=== PATIENT | female | born 1960 | race Caucasian/White ===

== ENCOUNTER 2024-09-22 20:01 | Observation (INO) | payer OTHER ==
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
[2024-09-22 21:16] LABS: Absolute Neutrophil Ct (ANC) 1.92 x10^3/uL (1.56-6.13); BASOPHIL % 2.2 % (0.1-1.2); Basophil (Absolute #) 0.11 x10^3/uL (0.01-0.08); Eosinophil % 6.3 % (0.7-5.8); Eosinophil (Absolute #) 0.32 x10^3/uL (0.04-0.36); Hematocrit 41.6 % (34.1-44.9); Hemoglobin 13.6 g/dL (11.2-15.7); IMMATURE GRAN # 0.01 x10^3u/L (0.001-0.031); IMMATURE GRAN % 0.2 % (0.001-0.429); Lymphocyte (Absolute #) 2.23 x10^3/uL (1.18-3.74); Lymphocytes % 44.2 % (19.3-51.7); Mean Cell Volume 92.7 fL (79.4-94.8); Mean Corpuscular Hemoglobin 30.3 pg (25.6-32.2); Mean Corpuscular Hgb Concent. 32.7 g/dL (32.2-35.5); Mean Platelet Volume 10.4 fL (9.4-12.3); Monocyte (Absolute #) 0.45 x10^3/uL (0.24-0.86); Monocytes % 8.9 % (4.7-12.5); Neutrophil % 38.2 % (34.0-71.1); Platelet Count 303 x10^3/uL (182-369); Red Blood Count 4.49 x10^6/uL (3.93-5.22); Red Cell Distribution Width 14.1 % (11.7-14.4)
[2024-09-22 21:19] LABS: Appearance Clear (Clear); Bacteria None Seen /HPF (None Seen); Bilirubin Negative (Negative); Blood Negative (Negative); Epithelial Cells Rare /HPF (None Seen); Glucose, Urine Negative (Negative); Hyaline Casts NONE SEEN /LPF (0-2); Ketones Negative (Negative); Leukocyte Esterase Negative (Negative); Nitrite Negative (Negative); Ph 6.5 (4.6-8.0); Protein,Urine Dip Trace (Negative); RBC 0-2 /HPF (0-5); Specific Gravity 1.025 (1.005-1.030); WBC 0-2 /HPF (0-5)
[2024-09-22 22:00] LABS: ALBUMIN 4.3 g/dL (3.5-5.0); ANION GAP 15.9 MEQ/L (5-15); Calcium 9.4 mg/dL (8.4-10.2); Creatinine 1 0.69 mg/dL (0.52-1.04); EST GLOMERULAR FILTRATION RATE 98.1 ML/MIN; NT PRO BNPII 95.4 pg/mL (<300); Potassium 3.8 mmol/L (3.5-5.1); TSH, 3RD Generation 0.119 mIU/L (0.470-4.680); Total Protein 7.6 g/dL (6.3-8.2)
[2024-09-22] MEDS ORDERED: BABY ASPIRIN 81 MG CHEW ONE (22:52)
[2024-09-22] MEDS: BABY ASPIRIN 81 MG CHEW PO ONE (22:54)
[2024-09-23] MEDS ORDERED: Zofran 4 MG/2 ML VIAL IV PRN (00:27)
[2024-09-23] MEDS ORDERED: VITAMIN D2 PO PRN (00:30)
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
[2024-09-23] MEDS: Ativan 1 MG PO SCH (02:18)
[2024-09-23] MEDS: TYLENOL 325 MG PO PRN (02:19)
[2024-09-23 05:15] VITALS: O2SAT 95
[2024-09-23 05:43] LABS: Absolute Neutrophil Ct (ANC) 2.12 x10^3/uL (1.56-6.13); BASOPHIL % 1.7 % (0.1-1.2); Basophil (Absolute #) 0.09 x10^3/uL (0.01-0.08); Eosinophil % 7.6 % (0.7-5.8); Eosinophil (Absolute #) 0.41 x10^3/uL (0.04-0.36); Hematocrit 40.7 % (34.1-44.9); Hemoglobin 13.4 g/dL (11.2-15.7); IMMATURE GRAN # 0.01 x10^3u/L (0.001-0.031); IMMATURE GRAN % 0.2 % (0.001-0.429); Lymphocyte (Absolute #) 2.28 x10^3/uL (1.18-3.74); Lymphocytes % 42.5 % (19.3-51.7); Mean Cell Volume 93.6 fL (79.4-94.8); Mean Corpuscular Hemoglobin 30.8 pg (25.6-32.2); Mean Corpuscular Hgb Concent. 32.9 g/dL (32.2-35.5); Monocyte (Absolute #) 0.45 x10^3/uL (0.24-0.86); Monocytes % 8.4 % (4.7-12.5); Neutrophil % 39.6 % (34.0-71.1); Platelet Count 321 x10^3/uL (182-369); Red Blood Count 4.35 x10^6/uL (3.93-5.22); Red Cell Distribution Width 14.3 % (11.7-14.4); White Blood Count 5.4 x10^3/uL (3.98-10.04)
[2024-09-23 06:10] LABS: ANION GAP 13.5 MEQ/L (5-15); Calcium 8.9 mg/dL (8.4-10.2); Creatinine 1 0.64 mg/dL (0.52-1.04); EST GLOMERULAR FILTRATION RATE 99.9 ML/MIN; Potassium 3.7 mmol/L (3.5-5.1)
[2024-09-23] MEDS: SYNTHROID 25 MCG PO SCH (07:17)
[2024-09-23] MEDS ORDERED: MEDICATION INTERVENTION MC SCH (07:30)
--- NOTE | 2024-09-23 08:43 | XRAY ---
Indication: Pain. Comparison: August 11, 2019 Portable chest again hyperinflated and clear. Heart not enlarged. Bony thorax intact again with mild degenerative changes. No new/acute findings.
[2024-09-23] MEDS: Pepcid 20 MG PO SCH (09:13)
[2024-09-23] MEDS: PLAVIX Tablet PO SCH (09:13)
[2024-09-23] MEDS: ECOTRIN 81 MG PO SCH (09:13)
[2024-09-23] MEDS: ENOXAPARIN SODIUM SQ SCH (09:14)
[2024-09-23] MEDS ORDERED: LAMOTRIGINE 25 MG PO SCH (10:00)
--- NOTE | 2024-09-23 11:35 | PCM.DS ---
Discharge Summary Date of Admission: 09/23/24 00:22 Date of Discharge: 09/23/24 Admitting Physician: MOOSE EISENBERG MD Primary Care Provider: PETER SPAULDING Allergies Allergies No Known Drug Allergies Allergy (Verified 09/22/24 20:06) Hospital Summary - Hospital Course Hospital Course: is a 64 year old female with a history of possible stroke/TIA (on ASA/Plavix, with an upcoming appointment with Neurology in December), hypothyroidism (on Synthroid, s/p thyroidectomy)( has an upcoming appointment with endocrinology) and no history of HTN or CAD (last stress test was more than 10 years ago and negative). She presented to the hospital last night for evaluation of intermittent left-sided chest pain that has been progressively worsening si april. Patient has also noticed that her blood pressure has been higher than normal. Patient states that her blood pressures were running in the 160s to 170s systolic. Chest pain tends to radiate down her left arm. Patient denies a cardiovascular history. No trauma no fever. Symptoms are mild to moderate in intensity when they occur. No associated nausea vomiting or diaphoresis. No diarrhea no rash no trauma. Patient reports that she has been a little more tearful lately for no apparent reason. In the ED, the workup was unremarkable other than a depressed TSH. At the time of my evaluation, the patient does not report a history of recent Synthroid dose changes. Today she continues to have the CP but only with palpation and appears to musculoskeletal. [place] have pt f/u OP with cardiology for need for possible cardiac stress test. Pt states today she is not going to change her synthroid dose at home and she does not care what is recommended here. Discussed possible side effects of abnormal thyroid levels. She has an upcoming appointment with endocrinology and will discuss then. She is requesting further testing for hx of possible TIA in April. Explained she is here for CP and I am unable to do this at this time. She currenlty has no stroke like sxs or concerns. Recommended she f/u OP as scheduled with neurology. She denies SOB, abd. pain, N/V/D. - Vitals & Intake/Output Vital Signs: Vital Signs Temperature 97.1 F 09/23/24 07:56 Pulse Rate 73 09/23/24 07:56 Respiratory Rate 17 09/23/24 07:56 Blood Pressure 147/79 09/23/24 07:56 O2 Sat by Pulse Oximetry 95 09/23/24 07:56 Intake & Output: Intake & Output 09/20/24 09/21/24 09/22/24 09/23/24 11:59 11:59 11:59 11:59 Intake Total 60 Balance 60 Weight 67.1 kg - Lab Result Diagrams: 09/23/24 05:34 09/23/24 05:34 Lab Results-Last 24 Hrs: Lab Results-Last 24 Hours 09/22/24 09/22/24 09/22/24 Range/Units 20:55 20:55 20:55 WBC 5.0 (3.98-10.04) x10^3/uL RBC 4.49 (3.93-5.22) x10^6/uL Hgb 13.6 (11.2-15.7) g/dL Hct 41.6 (34.1-44.9) % MCV 92.7 (79.4-94.8) fL MCH 30.3 (25.6-32.2) pg MCHC 32.7 (32.2-35.5) g/dL RDW 14.1 (11.7-14.4) % Plt Count 303 (182-369) x10^3/uL MPV 10.4 (9.4-12.3) fL Gran % 38.2 (34.0-71.1) % Immature Gran % (Auto) 0.2 (0.001-0.429) % Nucleat RBC Rel Count 0.0 (0.00-0.2) % Eos # (Auto) 0.32 (0.04-0.36) x10^3/uL Immature Gran # (Auto) 0.01 (0.001-0.031) x10^3u/L Absolute Lymphs (auto) 2.23 (1.18-3.74) x10^3/uL Absolute Monos (auto) 0.45 (0.24-0.86) x10^3/uL Absolute Nucleated RBC 0.00 (0.00-0.012) x10^3u/L Lymphocytes % 44.2 (19.3-51.7) % Monocytes % 8.9 (4.7-12.5) % Eosinophils % 6.3 H (0.7-5.8) % Basophils % 2.2 H (0.1-1.2) % Absolute Granulocytes 1.92 (1.56-6.13) x10^3/uL Basophils # 0.11 H (0.01-0.08) x10^3/uL Sodium 147 H (135-145) mmol/L Potassium 3.8 (3.5-5.1) mmol/L Chloride 108 H (98-107) mmol/L Carbon Dioxide 27 (22-30) mmol/L Anion Gap 15.9 H (5-15) MEQ/L BUN 15 (7-17) mg/dL Creatinine 0.69 (0.52-1.04) mg/dL Estimated GFR 98.1 ML/MIN Glucose 91 (74-106) mg/dL Calcium 9.4 (8.4-10.2) mg/dL Total Bilirubin 1.00 (0.2-1.3) mg/dL AST 36 (14-36) U/L ALT 22 (0-35) U/L Alkaline Phosphatase 121 (38-126) U/L Troponin I < 0.012 (0.000-0.033) ng/mL NT-Pro-B Natriuret Pep 95.4 (<300) pg/mL Serum Total Protein 7.6 (6.3-8.2) g/dL Albumin 4.3 (3.5-5.0) g/dL TSH 3rd Generation 0.119 L (0.470-4.680) mIU/L Urine Color (Yellow) Urine Appearance (Clear) Urine pH (4.6-8.0) Ur Specific [place] (1.005-1.030) Urine Protein (Negative) Urine Glucose (UA) (Negative) mg/dL Urine Ketones (Negative) Urine Blood (Negative) Urine Nitrite (Negative) Urine Bilirubin (Negative) Urine Urobilinogen (0.2) mg/dL Ur Leukocyte Esterase (Negative) U Hyaline Cast (Auto) (0-2) /LPF Urine Microscopic RBC (0-5) /HPF Urine Microscopic WBC (0-5) /HPF Ur Epithelial Cells (None Seen) /HPF Urine Bacteria (None Seen) /HPF Urine Culture Reflexed (NO) 09/22/24 09/23/24 09/23/24 Range/Units 21:09 01:02 05:34 WBC (3.98-10.04) x10^3/uL RBC (3.93-5.22) x10^6/uL Hgb (11.2-15.7) g/dL Hct (34.1-44.9) % MCV (79.4-94.8) fL MCH (25.6-32.2) pg MCHC (32.2-35.5) g/dL RDW (11.7-14.4) % Plt Count (182-369) x10^3/uL MPV (9.4-12.3) fL Gran % (34.0-71.1) % Immature Gran % (Auto) (0.001-0.429) % Nucleat RBC Rel Count (0.00-0.2) % Eos # (Auto) (0.04-0.36) x10^3/uL Immature Gran # (Auto) (0.001-0.031) x10^3u/L Absolute Lymphs (auto) (1.18-3.74) x10^3/uL Absolute Monos (auto) (0.24-0.86) x10^3/uL Absolute Nucleated RBC (0.00-0.012) x10^3u/L Lymphocytes % (19.3-51.7) % Monocytes % (4.7-12.5) % Eosinophils % (0.7-5.8) % Basophils % (0.1-1.2) % Absolute Granulocytes (1.56-6.13) x10^3/uL Basophils # (0.01-0.08) x10^3/uL Sodium (135-145) mmol/L Potassium (3.5-5.1) mmol/L Chloride (98-107) mmol/L Carbon Dioxide (22-30) mmol/L Anion Gap (5-15) MEQ/L BUN (7-17) mg/dL Creatinine (0.52-1.04) mg/dL Estimated GFR ML/MIN Glucose (74-106) mg/dL Calcium (8.4-10.2) mg/dL Total Bilirubin (0.2-1.3) mg/dL AST (14-36) U/L ALT (0-35) U/L Alkaline Phosphatase (38-126) U/L Troponin I < 0.012 < 0.012 (0.000-0.033) ng/mL NT-Pro-B Natriuret Pep (<300) pg/mL Serum Total Protein (6.3-8.2) g/dL Albumin (3.5-5.0) g/dL TSH 3rd Generation (0.470-4.680) mIU/L Urine Color Dark Yellow A (Yellow) Urine Appearance Clear (Clear) Urine pH 6.5 (4.6-8.0) Ur Specific [place] 1.025 (1.005-1.030) Urine Protein Trace A (Negative) Urine Glucose (UA) Negative (Negative) mg/dL Urine Ketones Negative (Negative) Urine Blood Negative (Negative) Urine Nitrite Negative (Negative) Urine Bilirubin Negative (Negative) Urine Urobilinogen 1.0 A (0.2) mg/dL Ur Leukocyte Esterase Negative (Negative) U Hyaline Cast (Auto) NONE SEEN (0-2) /LPF Urine Microscopic RBC 0-2 (0-5) /HPF Urine Microscopic WBC 0-2 (0-5) /HPF Ur Epithelial Cells Rare (None Seen) /HPF Urine Bacteria None Seen (None Seen) /HPF Urine Culture Reflexed NO (NO) 09/23/24 09/23/24 Range/Units 05:34 05:34 WBC 5.4 (3.98-10.04) x10^3/uL RBC 4.35 (3.93-5.22) x10^6/uL Hgb 13.4 (11.2-15.7) g/dL Hct 40.7 (34.1-44.9) % MCV 93.6 (79.4-94.8) fL MCH 30.8 (25.6-32.2) pg MCHC 32.9 (32.2-35.5) g/dL RDW 14.3 (11.7-14.4) % Plt Count 321 (182-369) x10^3/uL MPV 11.0 (9.4-12.3) fL Gran % 39.6 (34.0-71.1) % Immature Gran % (Auto) 0.2 (0.001-0.429) % Nucleat RBC Rel Count 0.0 (0.00-0.2) % Eos # (Auto) 0.41 H (0.04-0.36) x10^3/uL Immature Gran # (Auto) 0.01 (0.001-0.031) x10^3u/L Absolute Lymphs (auto) 2.28 (1.18-3.74) x10^3/uL Absolute Monos (auto) 0.45 (0.24-0.86) x10^3/uL Absolute Nucleated RBC 0.00 (0.00-0.012) x10^3u/L Lymphocytes % 42.5 (19.3-51.7) % Monocytes % 8.4 (4.7-12.5) % Eosinophils % 7.6 H (0.7-5.8) % Basophils % 1.7 H (0.1-1.2) % Absolute Granulocytes 2.12 (1.56-6.13) x10^3/uL Basophils # 0.09 H (0.01-0.08) x10^3/uL Sodium 143 (135-145) mmol/L Potassium 3.7 (3.5-5.1) mmol/L Chloride 108 H (98-107) mmol/L Carbon Dioxide 26 (22-30) mmol/L Anion Gap 13.5 (5-15) MEQ/L BUN 15 (7-17) mg/dL Creatinine 0.64 (0.52-1.04) mg/dL Estimated GFR 99.9 ML/MIN Glucose 96 (74-106) mg/dL Calcium 8.9 (8.4-10.2) mg/dL Total Bilirubin (0.2-1.3) mg/dL AST (14-36) U/L ALT (0-35) U/L Alkaline Phosphatase (38-126) U/L Troponin I (0.000-0.033) ng/mL NT-Pro-B Natriuret Pep (<300) pg/mL Serum Total Protein (6.3-8.2) g/dL Albumin (3.5-5.0) g/dL TSH 3rd Generation (0.470-4.680) mIU/L Urine Color (Yellow) Urine Appearance (Clear) Urine pH (4.6-8.0) Ur Specific [place] (1.005-1.030) Urine Protein (Negative) Urine Glucose (UA) (Negative) mg/dL Urine Ketones (Negative) Urine Blood (Negative) Urine Nitrite (Negative) Urine Bilirubin (Negative) Urine Urobilinogen (0.2) mg/dL Ur Leukocyte Esterase (Negative) U Hyaline Cast (Auto) (0-2) /LPF Urine Microscopic RBC (0-5) /HPF Urine Microscopic WBC (0-5) /HPF Ur Epithelial Cells (None Seen) /HPF Urine Bacteria (None Seen) /HPF Urine Culture Reflexed (NO) - Radiology Exams Ordered Rad Exams-Entire Visit: Radiology Procedures Category Date Time Status CHEST 1 VIEW (PORTABLE) Stat Exams 09/22/24 20:48 Completed - Procedures and Test Procedures and Tests throughout Hospitalization: Therapy Orders & Screens 09/23/24 00:27 EKG REPEAT IN AM Comment: Diagnosis: Chest pain, ACS 09/23/24 00:54 Respiratory Therapy Consult ONCE Comment: Reason For Exam: Diagnosis: Chest pain, ACS 09/23/24 07:58 EKG STAT Comment: Diagnosis: Chest pain, ACS Discharge Exam General Appearance: no apparent distress, alert Neurologic Exam: alert, oriented x 3, cooperative, normal mood/affect, nml cerebellar function, sensation nml, No motor deficits Eye Exam: PERRL, EOMI, eyes nml inspection Ears, Nose, Throat Exam: normal ENT inspection, pharynx normal, moist mucous membranes Neck Exam: normal inspection, non-tender, supple, full range of motion Respiratory Exam: normal breath sounds, lungs clear, No respiratory distress Cardiovascular Exam: regular rate/rhythm, normal heart sounds Gastrointestinal/Abdomen Exam: soft, No tenderness, No mass Pelvic Exam: deferred Rectal Exam: deferred Back Exam: normal inspection, normal range of motion, No CVA tenderness, No vertebral tenderness Extremity Exam: normal inspection, normal range of motion Skin Exam: normal color, warm, dry Comments: 09/23/24 11:36 Left pectoral pain with palpation, no CP radiation. Final Diagnosis/Problem List - Final Discharge Diagnosis/Problem (1) Chest pain Current Visit: Yes Status: Acute Assessment & Plan: - Trop x3 negative - CXR negative - TSH reviewed - Tele - EKG negative - OP cardiology appointment made Code(s): R07.9 - CHEST PAIN, UNSPECIFIED (2) Essential hypertension Current Visit: Yes Status: Chronic Assessment & Plan: - BP stable - continue home meds Code(s): I10 - ESSENTIAL (PRIMARY) HYPERTENSION (3) Hyperthyroidism Current Visit: Yes Status: Acute Assessment & Plan: - TSH 0.119 - Med changed but pt refused to take changed dose despite discussion - F/U with endocrinology OP Code(s): E05.90 - THYROTOXICOSIS, UNSP WITHOUT THYROTOXIC CRISIS OR STORM (4) TIA (transient ischemic attack) Current Visit: Yes Status: Chronic Assessment & Plan: - HX on April pt reports - MRI from 08/18/24 reviewed and negative, no deficits. Code(s): G45.9 - TRANSIENT CEREBRAL ISCHEMIC ATTACK, UNSPECIFIED - Discharge Discharge Date: 09/23/24 Disposition: Home, Self-Care Condition: Stable Prescriptions: Continue Aspirin 81 mg PO BID Clopidogrel Bisulfate [Clopidogrel] 75 mg PO DAILY Ergocalciferol (Vitamin D2) [Vitamin D2] 1,250 mcg PO WEEKLY Famotidine 20 mg PO DAILY Lamotrigine [Lamotrigine ER] 25 mcg PO DAILY Levothyroxine Sodium 50 mcg PO DAILY LORazepam [Lorazepam] 2 mg PO HS Instructions: Chest pain - Discharge instructions Additional Instructions: Follow up with endocrinology and neurology as scheduled. Follow up with: HENRRY GUEVARA [CONSULTING PHYSICIAN] - 10/07/24 9:30 am ([place] office) PETER SPAULDING MD [Primary Care Provider] - 10/01/24 3:30 pm Forms: Discharge Instructions
[2024-09-23 12:06] VITALS: BP 140/67; PULSE 74; RESP 16; TEMP 97
[2024-09-23] MEDS ORDERED: LORAZEPAM 2 MG PO SCH (22:00)
== END 2024-09-23 12:23 | disposition home or self-care (01) ==
LOC: ED 20:01 → MED SURG 09-23 00:22
PROVIDERS: ADMIT Internal Medicine; ATTEND Internal Medicine
DX: R07.9 Chest pain, unspecified (principal); I10 Essential (primary) hypertension; E05.90 Thyrotoxicosis, unspecified without thyrotoxic crisis or storm; G45.9 Transient cerebral ischemic attack, unspecified; Z79.899 Other long term (current) drug therapy; Z79.01 Long term (current) use of anticoagulants
CPT/HCPCS: 36415; 71045; 80048; 80053; 81001; 83880; 84443; 84484; 85025; 93005; 93041; 93268; 94760; 99285; G0379; Q3014; A9270-GY; G0378

== ENCOUNTER 2025-03-28 17:55 | Emergency (ER) | payer OTHER ==
[2025-03-28 18:26] VITALS: TEMP 98.8
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
[2025-03-28 21:39] VITALS: O2SAT 98
[2025-03-28 21:51] VITALS: BP 155/74; PULSE 70; RESP 18
--- NOTE | 2025-03-29 08:45 | XRAY ---
Indication: Pain. Comparison: None 3 nonweightbearing views right foot demonstrates osteopenia, tiny posterior heel spur, and tiny cuboid/navicular accessory ossicles. No acute bony, articular, or soft tissue abnormalities.
--- NOTE | 2025-03-29 08:54 | XRAY ---
Indication: Pain following fall 4 days ago. Comparison: None 3 view right knee demonstrates osteopenia, minimal medial joint space narrowing, and tiny suprapatella spurring. No acute bony, articular, or soft tissue abnormalities.
--- NOTE | 2025-03-29 08:55 | XRAY ---
Indication: Pain following fall 4 days ago. Comparison: None 3 view left knee demonstrates osteopenia, minimal medial joint space narrowing, and tiny suprapatella spurring. No acute bony, articular, or soft tissue abnormalities.
== END 2025-03-28 21:56 | disposition home or self-care (01) ==
LOC: ED 17:55
DX: S93.601A Unspecified sprain of right foot, initial encounter (principal); S80.02XA Contusion of left knee, initial encounter; S80.01XA Contusion of right knee, initial encounter; S80.212A Abrasion, left knee, initial encounter; S80.211A Abrasion, right knee, initial encounter; W10.8XXA Fall (on) (from) other stairs and steps, initial encounter; Y92.007 Garden or yard of unspecified non-institutional (private) residence as the place of occurrence of the external cause; Z79.899 Other long term (current) drug therapy